=== PATIENT | female | born 1955 | race Caucasian/White ===

== ENCOUNTER 2022-05-17 10:30 | Outpatient (RCR) | payer MEDICARE, BC, SELFPAY ==
--- NOTE | 2022-07-03 09:56 | ONC.NURNOTE ---
Patient called and given results of CT after Benita Muñoz reviewed it and no need for further testing-due for next visit in October 2022-Card put in for reminder Patient relieved!
== END 2022-11-13 23:59 | disposition home or self-care (01) ==
LOC: CCIC 10:30
PROVIDERS: PCP Physician Assistant; Visit Provider Physician Assistant
DX: C50.911 Malignant neoplasm of unspecified site of right female breast (principal); Z17.0 Estrogen receptor positive status [ER+]; I89.0 Lymphedema, not elsewhere classified; R07.81 Pleurodynia; M85.80 Other specified disorders of bone density and structure, unspecified site
CPT/HCPCS: 99212; 99214; 99215

== ENCOUNTER 2022-05-17 12:15 | Outpatient (CLI) | payer MEDICARE, BC, SELFPAY ==
--- NOTE | 2022-05-17 12:15 | CRLHL7_ITS ---
For Patients: As a result of the Century Cures Act, medical imaging exams and procedure reports are released immediately into your electronic medical record. You may view this report before your referring provider. If you have questions, please contact your health care provider. INDICATION: Right rib pain, no injury, history of right breast cancer. COMPARISON: None. TECHNIQUE: PA chest and right ribs, 4 images. FINDINGS: No focal consolidation, pleural effusion, or pneumothorax. Normal heart size and pulmonary vascularity. Surgical clips right breast. No displaced rib fracture identified. There are a few tiny lucent lesions in the visualized right humerus. IMPRESSION: 1. No acute cardiopulmonary findings. 2. No displaced rib fracture identified. 3. Few tiny lucent lesions in the visualized right humerus could be due to osteopenia but are indeterminate. Dictated by Alicia Stratton MD @ 05/17/2022 1:47:47 PM (Electronically Signed)
== END 2022-05-17 12:16 | disposition home or self-care (01) ==
LOC: RAD 12:15
PROVIDERS: PCP Physician Assistant; Visit Provider Physician Assistant
DX: R07.81 Pleurodynia (principal); C50.911 Malignant neoplasm of unspecified site of right female breast; M89.9 Disorder of bone, unspecified
CPT/HCPCS: 71101

== ENCOUNTER 2022-06-05 11:50 | Outpatient (CLI) | payer MEDICARE, BC, SELFPAY ==
--- NOTE | 2022-06-05 12:00 | CRLHL7_ITS ---
For Patients: As a result of the Century Cures Act, medical imaging exams and procedure reports are released immediately into your electronic medical record. You may view this report before your referring provider. If you have questions, please contact your health care provider. INDICATION: 66 year-old female. 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 Radiation therapy. Right rib pain. TECHNIQUE: 5.1 mCi Tc-99m labeled MDP administered. Delayed whole body images obtained with the patient at rest. COMPARISON: None. Correlation is made with a chest x-ray and detailed right rib views May 17, 2022. FINDINGS: There is good uptake of activity by the skeleton. There is uptake centrally and toward the right of midline within an upper lumbar vertebral body probably L2. This is indeterminate but could be degenerative or posttraumatic in nature. Plain radiographic correlation is suggested. Focal activity upper mid left cervical spine is almost certainly degenerative in nature as is the activity at L4-L5. There is also some degenerative-type activity in the left sternoclavicular joint, hips, and knees. The kidneys are present without obstruction although there appears to be a photopenic defect along the mid lateral right kidney seen on the posterior image. Consider a renal ultrasound or CT for further evaluation. IMPRESSION: 1. Central and right-sided uptake at approximately L2. Although potentially degenerative or posttraumatic in nature, a metastasis could not be entirely excluded. CT or plain radiographic correlation recommended. 2. Uptake in the upper left cervical spine and lower lumbar spine at L4-L5 as well as the left sternoclavicular joint are all likely degenerative in nature. 3. Photopenic defect mid lateral right kidney for which ultrasound or CT is recommended for further characterization. This may reflect a cyst. 4. There is no abnormal activity in the proximal humeri or ribs. Dictated by Agapito Chiang MD @ 06/05/2022 4:32:12 PM (Electronically Signed)
== END 2022-06-05 11:51 | disposition home or self-care (01) ==
LOC: NM 11:54
PROVIDERS: PCP Physician Assistant; Visit Provider Physician Assistant
DX: C50.911 Malignant neoplasm of unspecified site of right female breast (principal); R07.81 Pleurodynia; M89.9 Disorder of bone, unspecified
CPT/HCPCS: 78306; A9503

== ENCOUNTER 2022-06-22 12:02 | Outpatient (CLI) | payer MEDICARE, BC, SELFPAY ==
--- NOTE | 2022-06-22 12:15 | CRLHL7_ITS ---
For Patients: As a result of the Century Cures Act, medical imaging exams and procedure reports are released immediately into your electronic medical record. You may view this report before your referring provider. If you have questions, please contact your health care provider. CLINICAL HISTORY: PHOTOPENIC DEFECT MID LAT RIGHT KIDNEY COMPARISON: Whole-body bone scan 06/05/2022 TECHNIQUE: Bonilla scale and color Doppler images were acquired of the kidneys. FINDINGS: There is a simple partially exophytic cyst arising from the midportion of the right kidney laterally measuring 5.8 x 6.2 x 6.3 cm. No hydronephrosis. Two solid-appearing structures arise from the left kidney, 1 at the superior aspect measuring 4.6 x 4.3 x 4.0 cm and 1 from the lateral aspect measuring 2.6 x 1.9 x 2.2 cm. The right kidney measures 12.3 cm in length and the left kidney measures 12.1 cm in length. The renal cortex is normal bilaterally. Normal color Doppler flow to both kidneys. There is a defect within the right lateral abdominal wall measuring 1.6 x 0.9 x 1.3 cm which could represent hernia. Layering stones in the gallbladder. IMPRESSION: 6.3 cm simple cyst right kidney accounting for the photopenic defect on nuclear medicine exam. Possible 2 solid masses left kidney measuring 2.6 cm and 4.6 cm. Possible right-sided abdominal wall hernia. CT of the abdomen and pelvis with and without contrast recommended for further evaluation. Cholelithiasis. Dictated by Jf Cortez MD @ 06/25/2022 10:23:45 AM (Electronically Signed)
--- NOTE | 2022-06-22 13:15 | CRLHL7_ITS ---
For Patients: As a result of the Century Cures Act, medical imaging exams and procedure reports are released immediately into your electronic medical record. You may view this report before your referring provider. If you have questions, please contact your health care provider. INDICATION: Abnormal bone scan. Uptake at L2. Pain. TECHNIQUE: Three views of the lumbar spine. FINDINGS: Five lumbar vertebral bodies without acute fractures. Degenerative disc disease at L5 with grade I anterolisthesis of L5 in relationship to S1. Advanced degenerative disc disease at L2-3 with sclerosis, and hypertrophic change, and narrowing of the disc space. No acute compression fracture. No destructive skeletal lesion of the lumbar spine. Surgical clips lower right hemipelvis. Vascular calcification in the abdomen and pelvis. IMPRESSION: Advanced degenerative disc disease L2-3. Degenerative disc disease at L5 with spondylolisthesis. Dictated by Agapito Chiang MD @ 06/22/2022 1:35:01 PM (Electronically Signed)
== END 2022-06-22 12:03 | disposition home or self-care (01) ==
LOC: US 12:04
PROVIDERS: PCP Physician Assistant; Visit Provider Physician Assistant
DX: R94.8 Abnormal results of function studies of other organs and systems (principal); M89.9 Disorder of bone, unspecified; N28.1 Cyst of kidney, acquired; K43.9 Ventral hernia without obstruction or gangrene; M51.36 Other intervertebral disc degeneration, lumbar region; M43.16 Spondylolisthesis, lumbar region
CPT/HCPCS: 72100; 76775

== ENCOUNTER 2022-06-29 10:27 | Outpatient (CLI) | payer MEDICARE, BC, SELFPAY ==
--- NOTE | 2022-06-29 11:00 | CRLHL7_ITS ---
For Patients: As a result of the Century Cures Act, medical imaging exams and procedure reports are released immediately into your electronic medical record. You may view this report before your referring provider. If you have questions, please contact your health care provider. INDICATION: CYST ON RIGHT KIDNEY, MASS ON LEFT KIDNEY ? TECHNIQUE: CT abdomen and pelvis urogram without and with 89 cc Isovue 370 intravenous contrast. Contrast images were obtained in the nephrographic and delayed phases. COMPARISON: Ultrasound 06/22/2022 FINDINGS: KIDNEYS: The unenhanced images demonstrate no kidney or ureteral stones. The kidneys are normal in caliber and demonstrate normal uptake and excretion of IV contrast. There is a simple water attenuation cyst arising from the right kidney laterally measuring 6.0 cm. No left-sided renal mass. Incidental mild persistent lobation noted on the left accounting for the sonographic findings. The renal collecting systems and ureters are symmetrical, normal in caliber, and without evidence of mass or filling defect. URINARY BLADDER: The urinary bladder is normal in caliber and without evidence of mass, wall thickening, or inflammation. OTHER: No bowel obstruction or free air. No free fluid. No adenopathy. The appendix is absent. Postop changes to the umbilical region without abdominal wall hernia. The findings on ultrasound likely represented scar tissue. Atherosclerotic disease. Normal liver and gallbladder. Normal spleen and pancreas. The adrenal glands are normal. No fracture. Severe degenerative disc disease L2-3. Grade 1 degenerative spondylolisthesis of L5 on S1. IMPRESSION: 1. 6.0 cm simple right renal cyst. No left-sided renal mass. 2. No abdominal wall hernia. Postop changes to the periumbilical region. Please note that all CT scans at this facility use dose modulation, iterative reconstruction, and/or weight-based dosing when appropriate to reduce radiation dose to as low as reasonably achievable. Dictated by Jf Cortez MD @ 06/30/2022 8:57:28 AM (Electronically Signed)
[2022-06-29 11:07] LABS: Creatinine* 1.3 mg/dL (0.5-1.5); Estimated Glomerular Filt Rate 45 ml/min
== END 2022-06-29 10:28 | disposition home or self-care (01) ==
LOC: CT 10:28
PROVIDERS: PCP Physician Assistant; Visit Provider Physician Assistant
DX: N28.1 Cyst of kidney, acquired (principal); N28.89 Other specified disorders of kidney and ureter
CPT/HCPCS: 36415; 74178; 82565; Q9967

== ENCOUNTER 2022-08-15 13:20 | Outpatient (CLI) | payer MEDICARE, BC, SELFPAY ==
--- NOTE | 2022-08-15 13:30 | CRLHL7_ITS ---
For Patients: As a result of the Cures Act, medical imaging exams and procedure reports are released immediately into your electronic medical record. You may view this report before your referring provider. If you have questions, please contact your health care provider. DXA BONE MINERAL DENSITY STUDY , 08/15/2022 Current height (in): 67.0. Weight (lb): 185.0. Menopause age: 41. Ethnicity: White. 1. Have you had a previous hip or vertebral fracture? No. 2. Have you had any fractures during your adult life which did not result from significant trauma (e.g., auto accident)? No. 3. Did either of your parents have a hip fracture? No. 4. Do you smoke? Yes. 5. Have you ever taken Glucocorticoids? No. 6. Do you have rheumatoid arthritis? No. 7. Do you have secondary osteoporosis? No. 8. Do you drink 3 or more alcoholic drinks per day? No. 9. Are you being treated for osteoporosis? No. 10. Have you ever taken any of the following medications: Actonel, Evista, Fosamax, Miacalcin, Reclast, Boniva, Forteo, HRT (i.e. estrogen/hormone therapy), Protelos, Prolia, Vitamin D, Calcium, other ??? please specify. ANSWER: Yes, Vitamin D. 11. Do you have any of the following medical conditions: Anorexia or bulimia, asthma or emphysema, end stage renal disease, hyperparathyroidism, any seizure disorders, cancer, inflammatory bowel diseases, hysterectomy, other ??? please specify. ANSWER: No. 12. What was your maximum height (inches)? 67. 13. Do you perform weight bearing exercise regularly? No. 14. Do you regularly consume dairy products? No. 15. Do you drink caffeinated beverages? Yes. If female: 16. At what age did your period start? 14. 17. Are you premenopausal? No. 18. How many full term pregnancies have you had? 4. 19. Have you ever missed your period for more than 6 months in a row (not including or menopause)? No. TECHNIQUE: Bone mineral density study was performed using the [employer] ([employer] FINDINGS: The results of the study expressed as bone mineral density (BMD) are as follows: Lumbar spine L1, L4: BMD: 1.032 g/cm2. T-score: 0.0. Z-score: 1.9. Neck Left: BMD: 0.734 g/cm2. T-score: -1.0 . Z-score: 0.7. Right: BMD: 0.708 g/cm2. T-score: -1.3 . Z-score: 0.4. Total Left: BMD: 0.823 g/cm2. T-score: -1.0 . Z-score: 0.4. Right: BMD: 0.856 g/cm2. T-score: -0.7 . Z-score: 0.7. IMPRESSION: Osteopenia. *Comparison exams done prior to 10/2019 were performed on different unit, [employer]. COMPARISON: Compared with scan of 01/12/2021, the bone mineral density has decreased by 2.5 percent at the spine and decreased by 4.7 percent at the hip. FRAX 10-year Fracture Risk Major Osteoporotic Fracture: 8.9 percent Hip Fracture: 1.5 percent Reported Risk Factors: [place] () Neck BMD=0.708, BMI=29.0 Jf Cortez M.D. Diagnostic Radiologist [email or web address] CARINE/sandra JR/Dictated by: Jf Cortez MD @ 08/16/2022 6:26:00 AM (Electronically Signed)
--- NOTE | 2022-08-15 14:00 | CRLHL7_ITS ---
For Patients: As a result of the Cures Act, medical imaging exams and procedure reports are released immediately into your electronic medical record. You may view this report before your referring provider. If you have questions, please contact your health care provider. BILATERAL SCREENING MAMMOGRAM WITH COMPUTER-AIDED DETECTION AND TOMOSYNTHESIS TECHNIQUE: CC and MLO views were obtained. These mammographic images have been obtained using full-field digital technique. These mammographic images were interpreted with the benefit of computer-aided detection. Breast Tomosynthesis was used in this interpretation. COMPARISON FILM: 07/13/21, 07/08/20. FINDINGS: There are scattered areas of fibroglandular density IMPRESSION: There is no radiographic evidence for malignancy. ASSESSMENT: BI-RADS Category 1: Negative RECOMMENDATION: Routine screening mammogram in 1 year. A lay language report of this examination will be provided to the patient. Jf Cortez M.D. Diagnostic Radiologist [email or web address] CARINE/[email or web address] Transcribed: 2:43 p.mHouston ocasio/Dictated by: Jf Cortez MD @ 08/27/2022 8:37:00 AM (Electronically Signed)
== END 2022-08-15 13:21 | disposition home or self-care (01) ==
LOC: RAD 13:22
PROVIDERS: PCP Physician Assistant; Visit Provider Physician Assistant
DX: Z12.31 Encounter for screening mammogram for malignant neoplasm of breast (principal); M85.89 Other specified disorders of bone density and structure, multiple sites; M85.80 Other specified disorders of bone density and structure, unspecified site
CPT/HCPCS: 77063; 77067; 77080

== ENCOUNTER 2022-09-04 10:32 | Outpatient (CLI) | payer MEDICARE, SELFPAY | END 2022-09-04 10:33 | disposition home or self-care (01) | LOC: INJ CL 10:33 | PROVIDERS: PCP Physician Assistant; Visit Provider Family Medicine | DX: M54.16 Radiculopathy, lumbar region (principal); M51.36 Other intervertebral disc degeneration, lumbar region | CPT/HCPCS: 64483; J1100; Q9966 ==

== ENCOUNTER 2023-02-21 13:17 | Outpatient (RCR) | payer MEDICARE, BC, SELFPAY | END 2023-08-20 23:59 | disposition home or self-care (01) | LOC: CCIC 13:17 | PROVIDERS: PCP Physician Assistant; Visit Provider Physician Assistant | DX: C50.911 Malignant neoplasm of unspecified site of right female breast (principal); Z17.0 Estrogen receptor positive status [ER+]; M85.80 Other specified disorders of bone density and structure, unspecified site; I89.0 Lymphedema, not elsewhere classified | CPT/HCPCS: 99212; 99214; 99215 ==